=== PATIENT | male | born 1960 | race Caucasian/White ===

== ENCOUNTER → 2019-03-30 | Day surgery (SDC) | payer BC ==
[~2019-03-30] MED LIST: ASPI-630 PO; BUPR100T8 PO; BUPR75TA6 PO; CARV6.2511 PO; CHOL10003 PO; ENOX40DI SQ; FAMO20TA5 PO; FERR325T14 PO; HYDR-2761 PO; IPRA0.2S5 NEB; IV RINGERS,LACTATED 1000ML 1,000 ML IV SCH; LIDOCAINE 1% PF 2 ML VIAL. ID PRN; LIDOCAINE 2% PF 5 ML VIAL. ONE; LOSA-73 PO; MELA3TAB2 PO; METO25TA4 PO; MIDAZOLAM HCL/PF 2 MG/2 ML VIAL. IV PRN; MIRT15TA3 PO; NICO1PAT25 TD; PANT20TA2 PO; PROPOFOL 20 ML IV ONE; QUET25TA5 PO; SCOP1PAT11 TP; THIA100V3 IJ; TOLT2CAP PO; fentaNYL PF VIAL 100 MCG/2 ML VIAL IV PRN
--- NOTE | 2019-03-30 13:34 | PDOC4 ---
PROCEDURE Procedure EGD/PEG removal Indication: tube no longer needed. Meds: per anesthesia Findings: E--Normal G--G-tube in body D--Normal bulb --tube snared, cut externally, pushed into stomach and removed orally. [place]. well. IMP: successful tube removal. REC: 4x4's over site prn. F/u with me prn any problems. ARUN IBARRA MD March 30, 2019 13:34
[2019-03-30 14:00] VITALS: BP 104/74
== END | disposition home or self-care (01) ==
LOC: SURG 11:33
PROVIDERS: ATTEND Internal Medicine Gastroenterology
DX: Z46.59 Encounter for fitting and adjustment of other gastrointestinal appliance and device (principal); K86.0 Alcohol-induced chronic pancreatitis; Z98.890 Other specified postprocedural states; Z87.891 Personal history of nicotine dependence; Z72.89 Other problems related to lifestyle
CPT/HCPCS: 43247; J2001; J2704